=== PATIENT | male | born 1945 | race Two or more races ===

== ENCOUNTER 2017-01-08 22:45 | Inpatient (IN) ==
[2017-01-08] MEDS ORDERED: ONDANSETRON 4 MG/2 ML VIAL ONE (23:01)
[2017-01-08] MEDS ORDERED: ONDANSETRON 4 MG/2 ML VIAL IV STA (23:12)
[2017-01-08] MEDS ORDERED: PROMETHAZINE 25 MG/1 ML VIAL IM STA (23:47)
[2017-01-08] MEDS ORDERED: PANTOPRAZOLE 40 MG VIAL IV STA (23:47)
[2017-01-08] MEDS ORDERED: OCTREOTIDE 100 MCG/ML SYRINGE IV STA (23:47)
[2017-01-08] MEDS ORDERED: PANTOPRAZOLE 40 MG VIAL IV ONE (23:54)
[2017-01-08] MEDS ORDERED: PROMETHAZINE 25 MG/1 ML VIAL ONE (23:54)
[2017-01-08 23:56] LABS: Basophils # 0.1 10*3/uL (0.0-0.2); Basophils % 0.7 % (0.0-0.8); Eosinophils # 0.1 10*3/uL (0.0-0.87); Eosinophils % 0.9 % (0.00-10.9); Hematocrit 35.9 VOL% (42.0-52.0); Hemoglobin 12.9 GM/DL (14.0-18.0); Immature Granulocytes % 0.7 %; Immature Granulocytes Absolute 0.06 #; Lymphocytes # 1.7 10*3/uL (1.4-4.0); Lymphocytes % 18.8 % (21.2-54.2); Mean Corpuscular HGB Conc 35.9 GM/DL (32-36); Mean Corpuscular Hemoglobin 32 PG (27-34); Mean Corpuscular Volume 89.3 FL (87-102); Mean Platelet Volume 11.2 FL (9.6-12.0); Monocytes # 0.5 10*3/uL (0.11-0.8); Monocytes % 5.9 % (1.7-12.7); Neutrophils # 6.6 10*3/uL (1.4-7.4); Platelet Count 96 T/CUMM (130-400); Red Blood Count 4.02 MC/CUMM (3.8-5.5); Red Cell Distribution Width 13.7 % (9.3-17.3)
[2017-01-08] MEDS ORDERED: OCTREOTIDE 100 MCG/ML SYRINGE ONE (23:56)
[2017-01-09 00:08] LABS: Albumin 2.8 G/DL (3.4-5.0); Bilirubin,Total 4.2 MG/DL (0.2-1.0); Calcium 8.4 MG/DL (8.5-10.1); Total Protein 6.2 G/DL (6.4-8.3)
[2017-01-09 00:17] LABS: INR 1.2; PT Patient Result 12.7 SECS; Partial Thromboplastin Time 27.8 SECS (0-40)
[2017-01-09] MEDS ORDERED: MORPHINE 2 MG/1 ML SYRINGE IV PRN (00:40)
[2017-01-09] MEDS ORDERED: PROMETHAZINE 25 MG/1 ML VIAL IM PRN (00:40)
[2017-01-09] MEDS ORDERED: ONDANSETRON 4 MG/2 ML VIAL IV PRN (00:40)
[2017-01-09] MEDS ORDERED: PROMETHAZINE 25 MG TABLET PO PRN (00:40)
--- NOTE | 2017-01-09 00:42 | Emergency Department Note ---
Arrival - Arrival Chief Complaint: GI Bleed/Rectal ED Nursing Triage Note: Pt arrives via ems from home with complaints of vomiting blood. Pt has history of upper gi bleed in the past. At time of triage pt is actively vomiting. Reports that it started two hours ago and that he esimated he filled up half of the emesis bag. Pt states that he does have abd pain that comes and goes. Last normal Bm was earlier today. Pt states that no blood was in the stool. Denies history of alcohol use. Mode of Arrival: Stretcher Limitations: Language Barrier Source: Patient Time Seen by Provider: 01/08/17 23:47 - History of Present Illness HPI Narrative: The history on this patient is limited and of questionable accuracy due to language barrier. The patient complains of vomiting blood. This started about 2 hours ago. He denies any blood in his stool or melena. He does tell me he has had cirrhosis in the past although, contrary to the triage note, he denies any history of GI bleed to me. He has been seen by a GI specialist in the past and had an EGD. It sounds like he was told he had esophageal varices. He denies any history of alcohol use. He denies any dizziness, lightheadedness, syncope or shortness of breath at present. He denies any other medical problems and states he has not been on any medications for approximately 4 months. Allergies/Adverse Reactions: Allergies Allergy/AdvReac Type Severity Reaction Status Date / Time No Known Allergies Allergy Verified 01/08/17 23:00 Home Medications: Home Medications Medication Instructions Recorded Confirmed Type No Known Home Medications [No 01/08/17 01/08/17 History Known Home Medications] Review of System - Review of System ROS unobtainable: other (Language barrier) - Review of System Constitutional: Absent: weakness Cardiovascular: Absent: chest pain Gastrointestinal: Present: abdominal pain, nausea, vomiting, hematemesis. Absent: diarrhea, constipation, melena, hematochezia Medical,Surgical,& Family Hx - Medical History Gastrointestinal: History of: Esophageal Varices, Liver Problems (Cirrhosis, nonalcoholic) No history of: Gastrointestinal Bleed - Surgical History Abdominal Surgeries: Surgical HX of: Appendectomy - Family History Family History: noncontributory - Social History Smoking Status: Never smoker Frequency of Alcohol Use: None Type of Drug Use: None Exam Physical Examination: GENERAL: Alert. No acute distress. The patient was actively vomiting maroon colored blood on arrival. HEENT: Normocephalic and atraumatic. There is no nasal drainage. No pharyngeal erythema or exudate. NECK: Normal inspection. Supple. No lymphadenopathy or meningismus. LUNGS: No respiratory distress. Clear to auscultation bilaterally, no wheezes, rales or rhonchi. HEART: Regular rate and rhythm. ABDOMEN: Soft, nontender and nondistended with normoactive bowel sounds. BACK: Normal inspection. SKIN: Color normal. Warm and dry. EXTREMITIES: Nontender. Normal range of motion. No pedal edema. NEUROLOGICAL/PSYCHIATRIC: Alert and oriented -3 with normal mood and affect. Cranial nerves normal. No motor or sensory deficit. Vital Signs: Vital Signs Temperature 98.4 F 01/08/17 22:45 Pulse Rate 97 H 01/08/17 23:10 Respiratory Rate 16 01/08/17 23:10 Blood Pressure 190/99 01/08/17 23:10 O2 Sat by Pulse Oximetry 99 01/08/17 23:10 Course - Reevaluation(s) Reevaluation #1: The patient continued to vomit in the ER maroon colored blood. I have put down an NG tube and given him Sandostatin. We are continuing fluids and putting him on a Sandostatin infusion. He seems to have slowed down at the moment. I suspect this is esophageal varices. I have discussed the patient with Dr. Wells who will see him in the ER and admit. Time: 00:40 Results - Labs CBC & BMP: 01/08/17 23:04 01/08/17 23:04 Critical Care Time Total Critical Care Time: 45 Disposition Clinical Impression: Hematemesis, Cirrhosis Case discussed with: patient Disposition: Still a Patient Condition: Guarded Time of Disposition: 00:42
[2017-01-09] MEDS ORDERED: hydrALAZINE 20 MG/1 ML VIAL IV PRN (00:45)
--- NOTE | 2017-01-09 00:57 | Hospitalist History & Physical ---
<MarisabelEdmund barillasramonita Velásquez - Last Filed: 01/09/17 01:54> History of Present Illness History of present illness: Mr. Ochoa is a 71 year old male Home Medications Medication Instructions Recorded Confirmed Type No Known Home Medications [No 01/08/17 01/08/17 History Known Home Medications] Allergies Allergy/AdvReac Type Severity Reaction Status Date / Time No Known Allergies Allergy Verified 01/08/17 23:00 Exam - Constitutional Vitals: Period Temp Pulse Resp BP Sys/Hicks Pulse Ox Last 24 Hr 98.4 F-98.4 F 77-97 16-18 129-190/66-99 94-99 Exam: Constitutional System: Well-developed. No distress. No tremulousness. Head: Normocephalic, atraumatic. Ears, Nose and Throat System: No pain or tenderness. No epistaxis or discharge Eyes System: Pupils equal, round, and reactive. Extraocular muscles intact. Mild icterus noted. Neck: Supple, without adenopathy, No jugular venous distention. No thyromegaly, neck mass, or prior surgery apparent. Respiratory System: Chest clear to auscultation. Cardiovascular System: Heart with regular rate and rhythm. Systolic murmur noted ; greatest intensity over right upper sternal border. GI System: Abdomen soft, nontender. Hyper active bowel sounds present. Musculoskeletal System: limbs with mild pedal edema. Full distal pulses. Normal capillary refill. Neurological System: No discernable sensory deficit. No aphasia Psychiatric System: Conversation is rational Results - Labs CBC & BMP: 01/08/17 23:04 01/08/17 23:04 <Jeffy Wells - Last Filed: 01/09/17 03:27> Assessment and Plan - Time spent with patient Time spent with patient: Greater than 30 minutes (1) Hematemesis Status: Acute Assessment and plan: admit to icu Continue Sandostatin Continue IV PPI NPO IVF Consult GI Check hepatitis panel Current Visit: Yes Qualifiers: Nausea presence: with nausea Qualified Code(s): K92.0 - Hematemesis; R11.0 - Nausea (2) Cirrhosis Status: Acute Assessment and plan: unclear which type Current Visit: Yes Qualifiers: Hepatic cirrhosis type: unspecified hepatic cirrhosis (3) Hyperbilirubinemia Status: Acute Assessment and plan: Bilirubin of 4. Follow-up GI consult and right upper quadrant ultrasound Current Visit: Yes History of Present Illness Chief complaint: vomiting blood History of present illness: Mr. Ochoa is a 71 year old male that presented to the ED with complaints of abd pain and vomiting blood. The history on this patient is limited and of questionable accuracy due to language barrier. his sx's began about 2 hours ago. He denies any blood in his stool or melena. He does tell me he has had cirrhosis in the past although, contrary to the triage note, he denies any history of GI bleed to me. He has been seen by a GI specialist in the past and had an EGD. It sounds like he was told he had esophageal varices. He denies any history of alcohol use. He denies any dizziness, lightheadedness, syncope or shortness of breath at present. He denies any other medical problems and states he has not been on any medications for approximately 4 months. He was started on Sandostatin in the ED after vomiting more blood in the emesis bag. He is being admitted to the ICU for continued supportive care and repeat H/H as well as sandostatin and IV PPI. The patient was seen in [facility] and worked up for cirrhosis and esophageal varices. This is within the last 6 months. He is unsure as to the underlying cause of his cirrhosis but reports that he is not and has not been a heavy alcohol drinker. MERINO is in the differential. This is his first bleeding episode. He reports being started on Aldactone while in [place] but has not been taking it recently. He states he vomited approximately 5 times today. Each time contained approximately 300 cc of blood. At the time of my exam, the patient is pain-free. He was seen and examined in the emergency department in room 18 with Yovana Castaneda NP. Medical,Surgical,& Family Hx - Medical History Gastrointestinal: History of: Esophageal Varices, Liver Problems (Cirrhosis, nonalcoholic) No history of: Gastrointestinal Bleed - Surgical History Abdominal Surgeries: Surgical HX of: Appendectomy - Family History Additional Family History: The patient denies any family history of liver problems or other health problems in his parents or siblings. - Social History Smoking Status: Never smoker Frequency of Alcohol Use: None Type of Drug Use: None Marital Status: Lives With:: Spouse Functional capacity: independent ambulation 12 point system: reviewed and no additional remarkable complaints except as stated - Gastrointestinal Gastrointestinal: Present: as per HPI, hematemesis, nausea, vomiting Exam - Constitutional Vitals: Period Temp Pulse Resp BP Sys/Hicks Pulse Ox Last 24 Hr 98.4 F-98.4 F 92-97 16-18 172-190/79-99 98-99 Results - Labs CBC & BMP: 01/08/17 23:04 01/08/17 23:04 Lab Results: I have reviewed the past 24 hour labs Quality Measures - VTE Contraindication to Pharmacological VTE Prophylaxis: Active Bleeding
[2017-01-09] MEDS: OCTREOTIDE 1,250 MCG in SODIUM CHLORIDE 0.9% 247.5 ML IV SCH (01:18)
[2017-01-09] MEDS: SODIUM CHLORIDE 0.9% 1,000 ML IV SCH ×3 (02:05→16:55)
[2017-01-09] MEDS: PANTOPRAZOLE 40 MG VIAL IV SCH ×3 (06:11→21:33)
[2017-01-09 06:16] LABS: Basophils % 0.1 % (0.0-0.8); Eosinophils % 0.3 % (0.00-10.9); Hematocrit 30.8 VOL% (42.0-52.0); Hematocrit 30.9 VOL% (42.0-52.0); Hemoglobin 11.1 GM/DL (14.0-18.0); Immature Granulocytes % 0.4 %; Immature Granulocytes Absolute 0.03 #; Lymphocytes # 1.3 10*3/uL (1.4-4.0); Lymphocytes % 18.5 % (21.2-54.2); Mean Corpuscular HGB Conc 35.6 GM/DL (32-36); Mean Corpuscular Hemoglobin 32 PG (27-34); Mean Corpuscular Volume 90.9 FL (87-102); Mean Platelet Volume 10.9 FL (9.6-12.0); Monocytes # 0.4 10*3/uL (0.11-0.8); Monocytes % 5.6 % (1.7-12.7); Neutrophils # 5.1 10*3/uL (1.4-7.4); Neutrophils % 75.1 % (38.7-73.9); White Blood Count 6.8 T/CUMM (4-12)
[2017-01-09 06:19] LABS: Platelet Count 70 T/CUMM (130-400)
[2017-01-09 06:22] LABS: Platelet Estimate Decreased
[2017-01-09 06:33] LABS: Albumin 2.4 G/DL (3.4-5.0); Bilirubin,Total 4.6 MG/DL (0.2-1.0); Calcium 7.8 MG/DL (8.5-10.1); Osmolality,Calculated 293.7 MOS/KG (273-304); Potassium 5.3 MMOL/L (3.5-5.1); Total Protein 5.2 G/DL (6.4-8.3)
[2017-01-09 07:42] LABS: Hepatitis A Ab IgM Quant 0.14 Index; Hepatitis A Ab IgM Result Negative (Negative); Hepatitis B Core IgM Quant < 0.05 Index; Hepatitis B Core IgM Result Negative (Negative); Hepatitis B Surface Ag Quant 0.24 Index; Hepatitis B Surface Ag Result Negative (Negative); Hepatitis C Virus Ab Quant 0.05 Index; Hepatitis C Virus Ab Result Negative (Negative)
--- NOTE | 2017-01-09 10:02 | Ultrasound Report ---
US right upper quadrant Indication: Elevated bilirubin. ULTRASOUND ABDOMEN, limited Comparison: None Findings: Liver: No focal lesion. Smooth contour and normal size. Heterogeneous increased echotexture throughout. Gallbladder: 5 mm soft tissue polyp without shadowing the gallbladder fundus. Otherwise negative gallbladder. Common bile duct: 3 mm Pancreas: Visualized segments are unremarkable. Tail obscured by bowel gas. Right kidney: 13.1 cm length. No mass, cyst, calcification or obstruction Impression: 1. Gallbladder polyp. Otherwise negative gallbladder. 2. Diffuse increased and heterogeneous echotexture of the liver noted, evidence of either cirrhosis or fatty infiltration. Otherwise negative liver. PROCEDURE INTERPRETED AT [facility] DEPARTMENT OF RADIOLOGY Final Report Signed by: Gavin Jerez M.D.
--- NOTE | 2017-01-09 12:17 | Gastrointestinal Consult Note ---
Assessment and Plan (1) Hematemesis Status: Acute Assessment and plan: The patient has an upper GI bleed by report with 3 episodes of hematemesis his recent truck stop and 2 more episodes of hematemesis here at the emergency room each with about 40 cc of blood which previously was maroon. Rectal exam today shows melena consistent with the patient's history of upper GI bleeding. The patient denies previous episodes but I am sure that if he underwent upper endoscopy for this was likely due to a history of prior bleeding in [place]. He was diagnosed as having varices at that time. It is unclear whether these were banded or not or whether this present episode associated with a variceal bleed versus bleeding from some other source such as food poisoning or ulcer disease. He recently had some aspirin and whether this is playing a role is unclear. He does not feel any pain he did not have any dysphagia. I am going to let him rest in the ICU tomorrow and continue his infusion of octreotide, will plan on doing upper endoscopy in the GI suite with potential banding on Wednesday. His hematocrit has changed although it looks like he is only lost approximately 1-2 units of blood. He can potentially have some full liquids to drink over the weekend. I would attempt to remove his NG tube is soon as practical as this may be irritating varices that are present. Current Visit: Yes Qualifiers: Nausea presence: with nausea Qualified Code(s): K92.0 - Hematemesis; R11.0 - Nausea (2) Acute posthemorrhagic anemia Status: Acute Assessment and plan: Hematocrit is about 30% at this time we will watch for continued losses over the weekend. Plan on EGD to occur on 01/11/17. We will get his daughter to relay the risks to the patient to include bleeding, infection, perforation, cardiac and pulmonary compromise. Current Visit: Yes (3) History of esophageal varices Status: Acute Current Visit: Yes (4) Cirrhosis Status: Acute Assessment and plan: At this time I really do not have a clue as to what is producing the cirrhosis. This may be nonalcoholic fatty liver disease versus hemochromatosis versus alpha-1 antitrypsin deficiency or perhaps even autoimmune hepatitis. Laboratories are pending at this time. I am not sure if he ever had a liver biopsy but that is simply could be pursued in the future if not. Will likely need variceal prophylaxis with beta blockers upon discharge depending on the findings of upper endoscopy. We will pursue banding for a hemostasis if the patient has evidence of significant size varices and/or red ru signs. Observe in the CCU setting due to potential risks for additional bleeding. 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 The patient speaks Indonesian and we have no bilingual interpreter available but in questioning the patient he states that he does not have any abdominal pain today nor did he have much yesterday but had taken aspirin 2 2 days ago in conjunction with some throat pain. He does not smoke and does not drink at all in keeping with his moravian tenets. He does not feel dizzy or weak, he has never had episodes like this in the past. He does not typically take NSAIDs. Over the evening time his hematocrit has dropped some but not an extraordinary amount. He does have thrombocytopenia with a platelet count that is dropped from 96-70. His hematocrit is dropped from 35.9-->30.8%. The patient's hepatitis A, B, and C are all negative however his bilirubin is noted to be elevated at 4.6, we do not have a direct fraction, alkaline phosphatase surprisingly is normal at 95. Total protein and albumin are low at 5.2 and 2.4. Ultrasound shows an increased echotexture consistent with steatosis versus cirrhosis as well as a soft tissue polyp shadowing in the gallbladder but a normal common bile duct and no ductal dilatation. This patient previously seen a GI physician in [facility] who diagnosed him as having esophageal varices by report and had diagnosed him as having cirrhosis. With no alcohol history and negative viral indicators it is unclear what type he might have but we will check him for alpha -1 antitrypsin deficiency, autoimmune hepatitis and hemochromatosis. Given that his hematocrit is stable and he is having no pain and no other issues we will likely delay his endoscopy until Wednesday morning. Home Medications Medication Instructions Recorded Confirmed Type No Known Home Medications [No 01/08/17 01/08/17 History Known Home Medications] Allergies Allergy/AdvReac Type Severity Reaction Status Date / Time No Known Allergies Allergy Verified 01/08/17 23:00 Medical,Surgical,& Family Hx - Medical History Cardio: History of: Hypertension Endocrine: History of: Diabetes Mellitus (IDDM) Gastrointestinal: History of: Esophageal Varices, Liver Problems (Cirrhosis, nonalcoholic) No history of: Gastrointestinal Bleed - Surgical History Abdominal Surgeries: Surgical HX of: Appendectomy - Social History Smoking Status: Never smoker Frequency of Alcohol Use: None Type of Drug Use: None ROS unobtainable: other Review of systems: Unable to assess due to language barrier Exam - Constitutional Vitals: Period Temp Pulse Resp BP Sys/Hicks Pulse Ox Last 24 Hr 97.8 F-98.4 F 66-97 15-24 94-190/51-99 94-100 General appearance: no acute distress - Head Head exam: Present: normocephalic - Eye Eye exam: Present: EOMI. Absent: scleral icterus - ENT ENT exam: Present: other (NG tube in place) - Respiratory Respiratory exam: Present: clear to auscultation bilaterally. Absent: rhonchi, stridor, wheezes - Cardiovascular Cardiovascular exam: Present: regular rate and rhythm - GI/Abdominal GI/Abdominal exam: Present: normal bowel sounds, soft, other (Rectal exam today shows good tone no external fissures or fistulas stool was checked black and grossly guaiac positive consistent with melena). Absent: distended, firm, guarding, tenderness, rebound - Extremities Exam Extremities exam: Present: edema (Trace) - Neurological Exam Neurological exam: Present: alert, oriented X3 - Psychiatric Psychiatric exam: Present: normal affect, normal mood - Skin Skin exam: Present: warm Results - Labs CBC & BMP: 01/09/17 05:31 01/09/17 05:31 Quality Measures - VTE Contraindication to Pharmacological VTE Prophylaxis: Active Bleeding
[2017-01-09 12:42] LABS: Hematocrit 29.2 VOL% (42.0-52.0); Hemoglobin 10.5 GM/DL (14.0-18.0)
[2017-01-09 13:12] LABS: % Iron Saturation 92.9 % (18-50)
[2017-01-09 21:24] LABS: Hemoglobin 10.1 GM/DL (14.0-18.0)
[2017-01-10] MEDS: SODIUM CHLORIDE 0.9% 1,000 ML IV SCH ×3 (01:12→17:06)
[2017-01-10] MEDS: OCTREOTIDE 1,250 MCG in SODIUM CHLORIDE 0.9% 247.5 ML IV SCH (01:13)
[2017-01-10 01:39] LABS: Basophils % 0.5 % (0.0-0.8); Eosinophils # 0.2 10*3/uL (0.0-0.87); Eosinophils % 2.6 % (0.00-10.9); Hematocrit 28.3 VOL% (42.0-52.0); Hemoglobin 9.8 GM/DL (14.0-18.0); Immature Granulocytes % 0.5 %; Immature Granulocytes Absolute 0.03 #; Lymphocytes # 1.8 10*3/uL (1.4-4.0); Mean Corpuscular HGB Conc 34.6 GM/DL (32-36); Mean Corpuscular Hemoglobin 32 PG (27-34); Mean Corpuscular Volume 92.2 FL (87-102); Mean Platelet Volume 10.8 FL (9.6-12.0); Monocytes # 0.3 10*3/uL (0.11-0.8); Monocytes % 5.5 % (1.7-12.7); Neutrophils # 3.4 10*3/uL (1.4-7.4); Neutrophils % 59.9 % (38.7-73.9); Platelet Count 60 T/CUMM (130-400); Red Blood Count 3.07 MC/CUMM (3.8-5.5); Red Cell Distribution Width 14.1 % (9.3-17.3); White Blood Count 5.7 T/CUMM (4-12)
[2017-01-10 02:06] LABS: Albumin 2.2 G/DL (3.4-5.0); Bilirubin,Direct 0.5 MG/DL (0.0-0.20); Bilirubin,Indirect 4.1 MG/DL (0.0-1.0); Bilirubin,Total 4.6 MG/DL (0.2-1.0); Total Protein 4.9 G/DL (6.4-8.3)
[2017-01-10 02:25] LABS: Eosinophils 5 % (0-10); Lymphocytes 27 % (20-55); Myelocytes 1 %; Segmented Neutrophils 66 % (50-85); Total Cells Counted 100
[2017-01-10 02:26] LABS: Anisocytosis 1+; Platelet Estimate Decreased
[2017-01-10] MEDS: PANTOPRAZOLE 40 MG VIAL IV SCH ×2 (09:01→20:25)
--- NOTE | 2017-01-10 11:32 | Gastrointestinal Progress Note ---
Assessment and Plan (1) Hematemesis Status: Acute Assessment and plan: The patient has an upper GI bleed by report with 3 episodes of hematemesis his recent truck stop and 2 more episodes of hematemesis here at the emergency room each with about 40 cc of blood which previously was maroon. Rectal exam today shows melena consistent with the patient's history of upper GI bleeding. The patient denies previous episodes but I am sure that if he underwent upper endoscopy for this was likely due to a history of prior bleeding in [place]. He was diagnosed as having varices at that time. It is unclear whether these were banded or not or whether this present episode associated with a variceal bleed versus bleeding from some other source such as food poisoning or ulcer disease. He recently had some aspirin and whether this is playing a role is unclear. He does not feel any pain he did not have any dysphagia. I am going to let him rest in the ICU tomorrow and continue his infusion of octreotide, will plan on doing upper endoscopy in the GI suite with potential banding on Wednesday. His hematocrit has changed although it looks like he is only lost approximately 1-2 units of blood. He can potentially have some full liquids to drink over the weekend. I would attempt to remove his NG tube is soon as practical as this may be irritating varices that are present. 01/10/17--No further hematemesis, no other complaints, tolerating his clear liquids well in the ICU. He is currently on the octreotide drip and will plan on performing upper endoscopy tomorrow. The octreotide likely can be discontinued at that point. His hematocrit is slowly drifted from 35% all the way down to 28% at this time. He does not require transfusion yet. His son-in- law is present in the room and is acting as cargo checker. His home is apparently in [place] but he sees his international first officer routinely in [place]. Current Visit: Yes Qualifiers: Nausea presence: with nausea Qualified Code(s): K92.0 - Hematemesis; R11.0 - Nausea (2) Acute posthemorrhagic anemia Status: Acute Assessment and plan: Hematocrit is about 30% at this time we will watch for continued losses over the weekend. Plan on EGD to occur on 01/11/17. We will get his daughter to relay the risks to the patient to include bleeding, infection, perforation, cardiac and pulmonary compromise. 01/10/17--upper endoscopy to occur tomorrow, with potential banding of varices. Continue observation of hematocrit and octreotide for the present time. Current Visit: Yes (3) History of esophageal varices Status: Acute Current Visit: Yes (4) Cirrhosis Status: Acute Assessment and plan: At this time I really do not have a clue as to what is producing the cirrhosis. This may be nonalcoholic fatty liver disease versus hemochromatosis versus alpha-1 antitrypsin deficiency or perhaps even autoimmune hepatitis. Laboratories are pending at this time. I am not sure if he ever had a liver biopsy but that is simply could be pursued in the future if not. Will likely need variceal prophylaxis with beta blockers upon discharge depending on the findings of upper endoscopy. We will pursue banding for a hemostasis if the patient has evidence of significant size varices and/or red ru signs. Observe in the CCU setting due to potential risks for additional bleeding. 01/10/17--Laboratories pending as noted above. Presumably the patient will be ready for discharge either right after the endoscopy or perhaps a day later if he needs to be observed post banding. If banding is required the patient will need a full liquid diet for full week afterwards and he will need antibiotic prophylaxis at the time of banding (a single dose of Ancef should suffice). Current Visit: Yes Qualifiers: Hepatic cirrhosis type: unspecified hepatic cirrhosis Gastroenterology - PN: Subj Interval history: Tolerating clear liquids well, patient is awaiting his endoscopy tomorrow. Hematocrit showed a slow drift to 28% from 35% this morning. His home is actually in [facility], his international first officer is in [place]. Exam (Progress Note) - Constitutional Vitals: Period Temp Pulse Resp BP Sys/Hicks Pulse Ox Last 24 Hr 97.1 F-98.9 F 65-87 12-23 113-158/43-75 95-100 General appearance: no acute distress - Head Head exam: Present: normal inspection, normocephalic - Eye Eye exam: Present: EOMI Pupils: Present: LUIS - Respiratory Respiratory exam: Present: clear to auscultation bilaterally. Absent: rales, rhonchi, stridor - Cardiovascular Cardiovascular exam: Present: regular rate and rhythm - GI/Abdominal GI/Abdominal exam: Present: normal bowel sounds, soft. Absent: distended, tenderness, rebound - Neurological Exam Neurological exam: Present: alert, oriented X3, CN II-XII intact - Psychiatric Psychiatric exam: Present: normal affect, normal mood - Skin Skin exam: Present: warm Results - Labs CBC & BMP: 01/10/17 01:15 01/09/17 05:31
[2017-01-10 12:33] LABS: Hematocrit 31.3 VOL% (42.0-52.0); Hemoglobin 11.1 GM/DL (14.0-18.0)
--- NOTE | 2017-01-10 17:35 | Hospitalist Progress Note ---
Hospitalist: Subjective Interval history: 71-year-old male with history of cirrhosis of liver admitted admitted with upper GI bleed secondary to possible varices bleed. He is comfortable and has no further bleeding. Exam - Constitutional Vitals: Period Temp Pulse Resp BP Sys/Hicks Pulse Ox Last 24 Hr 97.6 F-98.9 F 65-87 12- 113-178/43-96 95-99 Exam: General: No Acute Distress HEENT: Normocephalic, atraumatic, Extra ocular movements intact Neck: Supple, No JVD Chest: Clear to auscultation B/L CV: S1 + S2 audible without murmur, gallop or rub Abd: soft, NT, Non-distended, BS + Ext: No edema Skin: No purpura, bruising or rash Rheumatologic: No Joint deformities Neurologic: Strength 5/5 all extremities, no gross sensory deficits Results - Labs CBC & BMP: 01/10/17 12:25 01/09/17 05:31 - Impressions Assessment and Plan (1) Upper GI bleed with hematemesis Status: Acute Assessment and plan: This is stable he has no further bleed, he is going for an EGD in the morning Current Visit: Yes (2) Anemia of acute GI blood loss Status: Acute Assessment and plan: Hematocrit is stable. Current Visit: Yes (3) History of esophageal varices Status: Acute Current Visit: Yes (4) Cirrhosis Status: Acute Current Visit: Yes Quality Measures - VTE Contraindication to Pharmacological VTE Prophylaxis: Active Bleeding
[2017-01-11] MEDS: SODIUM CHLORIDE 0.9% 1,000 ML IV SCH ×3 (01:22→16:45)
[2017-01-11] MEDS: OCTREOTIDE 1,250 MCG in SODIUM CHLORIDE 0.9% 247.5 ML IV SCH (01:23)
[2017-01-11 01:36] LABS: Hematocrit 28.4 VOL% (42.0-52.0); Hemoglobin 10.2 GM/DL (14.0-18.0)
[2017-01-11 06:23] LABS: Basophils % 0.3 % (0.0-0.8); Eosinophils # 0.1 10*3/uL (0.0-0.87); Eosinophils % 1.6 % (0.00-10.9); Hematocrit 27.9 VOL% (42.0-52.0); Immature Granulocytes % 0.6 %; Immature Granulocytes Absolute 0.04 #; Lymphocytes # 1.1 10*3/uL (1.4-4.0); Lymphocytes % 16.4 % (21.2-54.2); Mean Corpuscular HGB Conc 35.8 GM/DL (32-36); Mean Corpuscular Hemoglobin 33 PG (27-34); Mean Corpuscular Volume 91.8 FL (87-102); Mean Platelet Volume 11.3 FL (9.6-12.0); Monocytes # 0.4 10*3/uL (0.11-0.8); Monocytes % 5.6 % (1.7-12.7); Neutrophils # 5.2 10*3/uL (1.4-7.4); Neutrophils % 75.5 % (38.7-73.9); Platelet Count 60 T/CUMM (130-400); Red Blood Count 3.04 MC/CUMM (3.8-5.5); Red Cell Distribution Width 13.6 % (9.3-17.3); White Blood Count 6.8 T/CUMM (4-12)
[2017-01-11 06:48] LABS: Giant Platelets Few; Hypochromasia 1+; Microcytosis Slight; Platelet Estimate Decreased
--- NOTE | 2017-01-11 07:29 | EKG Report ---
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
[2017-01-11 07:40] LABS: Calcium 7.4 MG/DL (8.5-10.1); Potassium 3.8 MMOL/L (3.5-5.1)
[2017-01-11] MEDS: PANTOPRAZOLE 40 MG VIAL IV SCH (14:03)
[2017-01-11] MEDS ORDERED: LIDOCAINE 2% 5 ML VIAL ONE (14:34)
[2017-01-11] MEDS ORDERED: PROPOFOL 200 MG/20 ML VIAL IV ONE (14:34)
--- NOTE | 2017-01-11 14:54 | Operative Note ---
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 The prior H&P was reviewed and interrim changes are as noted: No change from GI consultation on 01/09/17 ENDOSCOPIST: Derek King MD ENDOSCOPE: Olympus Video 100 System upper endoscope ASA CLASS: 4 EXAM: CV: regular rate and rhythm respiratory: Clear without wheezes abdominal: active bowel sounds MEDICATION: Per nursing anesthesia protocol, see their notes PROCEDURE: After discussion of the potential risks and benefits of upper endoscopy, the informed consent was obtained. The patient was then placed in the left lateral decubitus position where sedation was achieved as noted above. Esophageal intubation was performed without difficulty, and the endoscope was advanced through the esophagus, stomach and duodenum. A slow withdrawal was then performed with retroflexion in the stomach for careful inspection of the incisura angularis, fundus and cardia. The scope was then returned to a neutral position and withdrawn through the esophagus. The patient tolerated the procedure well and without complication. BIOPSIES: Distal esophagus, gastric antrum/ulcer margin PHOTOGRAPHS : Obtained FINDINGS: Hypopharynx and Larynx: Normal Esohagoscopy Upper and middle thirds: Grade II esophageal varices, 3 columns Lower third grade II esophageal varices, 3 columns, no gross evidence of red ru signs Esophogastric junctions: There appear to be a small 1 cm tongue of possible Dunn's here which was gingerly biopsied due to the proximity of the varices Gastroscopy: Cardia/Fundus: Moderate portal hypertensive gastropathy, weeping some blood Body: Moderate portal hypertensive gastropathy, weeping some blood Antrum and pylorus there was a 1 cm ulcer noted here with a few other deep erosions thought to be the source the patient's bleeding, biopsies obtained to look for Helicobacter pylori Duodenoscopy: Bulb normal Second and third portions: Normal IMPRESSION: This patient has 3 columns of grade II varices, a possible tongue of Dunn's which was biopsied, moderate portal hypertensive gastropathy weeping some blood, and gastric ulcers/erosions. RECOMMENDATIONS: Follow up for biopsy results in 1-2 weeks by phone [phone] Continue anti-gastroesophageal reflux measures (avoid carbonated and acidic beverages, avoid eating within 2 hours of bedtime, avoid tight fitting clothing , and elevate the front bed posts 6 inches prior to sleeping. I would observe this patient for the next day before discharging him to make sure that he remains stable as far as his hematocrit goes. We did not do any banding so if his hematocrit is doing better tomorrow morning after feeding a solid diet he could certainly be discharged to follow-up with his pot maker in [place]. I do suggest that he undergo repeat upper endoscopy in 8 weeks to confirm healing. We will discontinue the octreotide and start the patient on propranolol 20 mg p.o. 3 times daily Derek King MD COPY TO: Marzena Salomon MD Anesthesia: MAC Surgeon / Physician: Derek King Estimated blood loss: minimal Specimens: other (Gastric antrum/body, question of Dunn's of the GE junction) Condition: stable Disposition: post procedure unit (G.I. Suite) Results - Labs CBC & BMP: 01/11/17 05:31 01/11/17 05:31 Discharge Plan - Discharge Medications No Action No Known Home Medications [No Known Home Medications] - Follow Up or Referral - Forms/Instructions
--- NOTE | 2017-01-11 15:02 | Gastrointestinal Progress Note ---
Assessment and Plan (1) Hematemesis Status: Acute Assessment and plan: The patient has an upper GI bleed by report with 3 episodes of hematemesis his recent truck stop and 2 more episodes of hematemesis here at the emergency room each with about 40 cc of blood which previously was maroon. Rectal exam today shows melena consistent with the patient's history of upper GI bleeding. The patient denies previous episodes but I am sure that if he underwent upper endoscopy for this was likely due to a history of prior bleeding in [place]. He was diagnosed as having varices at that time. It is unclear whether these were banded or not or whether this present episode associated with a variceal bleed versus bleeding from some other source such as food poisoning or ulcer disease. He recently had some aspirin and whether this is playing a role is unclear. He does not feel any pain he did not have any dysphagia. I am going to let him rest in the ICU tomorrow and continue his infusion of octreotide, will plan on doing upper endoscopy in the GI suite with potential banding on Wednesday. His hematocrit has changed although it looks like he is only lost approximately 1-2 units of blood. He can potentially have some full liquids to drink over the weekend. I would attempt to remove his NG tube is soon as practical as this may be irritating varices that are present. 01/10/17--No further hematemesis, no other complaints, tolerating his clear liquids well in the ICU. He is currently on the octreotide drip and will plan on performing upper endoscopy tomorrow. The octreotide likely can be discontinued at that point. His hematocrit is slowly drifted from 35% all the way down to 28% at this time. He does not require transfusion yet. His son-in- law is present in the room and is acting as dope maintenance worker. His home is apparently in [place] but he sees his fabricator special items routinely in [place]. 01/11/17--Upper endoscopy report: This patient has 3 columns of grade II varices , a possible tongue of Dunn's which was biopsied, moderate portal hypertensive gastropathy weeping some blood, and gastric ulcers/erosions. The grade 2 varices did not appear to be the source of the bleeding, we can stop the octreotide and start the patient on oral propranolol. His hematocrit has drifted down to 28% but is stable at this time. The gastric ulcers may be secondary to Helicobacter pylori or surreptitious use of NSAID. 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 Over this a weeks he should be left on Protonix 40 mg twice daily in addition to propranolol 20 mg 3 times daily to help control pressure in the varices. We can cut this back if his heart rate drops below 60. Biopsies were taken of a possible tongue of Dunn' s in the esophagus as well. Current Visit: Yes Qualifiers: Nausea presence: with nausea Qualified Code(s): K92.0 - Hematemesis; R11.0 - Nausea (2) Acute posthemorrhagic anemia Status: Acute Assessment and plan: Hematocrit is about 30% at this time we will watch for continued losses over the weekend. Plan on EGD to occur on 01/11/17. We will get his daughter to relay the risks to the patient to include bleeding, infection, perforation, cardiac and pulmonary compromise. 01/10/17--upper endoscopy to occur tomorrow, with potential banding of varices. Continue observation of hematocrit and octreotide for the present time. 01/11/17--Watch hematocrit over time, we can advance his diet there were no bands to have to worry about. We need to leave him on a low-sodium diet. Discontinue octreotide and he is safe to go up to the floor on his propranolol. Ultimately it would be reasonable to watch this patient in the unit 1 more day. He can be discharged home tomorrow if he is stable. Current Visit: Yes (3) History of esophageal varices Status: Acute Current Visit: Yes (4) Cirrhosis Status: Acute Assessment and plan: At this time I really do not have a clue as to what is producing the cirrhosis. This may be nonalcoholic fatty liver disease versus hemochromatosis versus alpha-1 antitrypsin deficiency or perhaps even autoimmune hepatitis. Laboratories are pending at this time. I am not sure if he ever had a liver biopsy but that is simply could be pursued in the future if not. Will likely need variceal prophylaxis with beta blockers upon discharge depending on the findings of upper endoscopy. We will pursue banding for a hemostasis if the patient has evidence of significant size varices and/or red ru signs. Observe in the CCU setting due to potential risks for additional bleeding. 01/10/17--Laboratories pending as noted above. Presumably the patient will be ready for discharge either right after the endoscopy or perhaps a day later if he needs to be observed post banding. If banding is required the patient will need a full liquid diet for full week afterwards and he will need antibiotic prophylaxis at the time of banding (a single dose of Ancef should suffice). 01/11/17--We do not know what the cause for the patient's cirrhosis is, however the patient's iron is 170 with a TIBC of 183 and iron saturation of 92.9%, NISH was negative and the alpha-1 antitrypsin level is pending. This is likely hemochromatosis. We will check a ferritin level as well, liver biopsy with a dry iron weight should confirm the diagnosis. We will leave it to his primary fabricator special items to decide if he would benefit from phlebotomy. Current Visit: Yes Qualifiers: Hepatic cirrhosis type: unspecified hepatic cirrhosis Gastroenterology - PN: Subj Interval history: Patient is doing well, he is very hungry. Exam (Progress Note) - Constitutional Vitals: Period Temp Pulse Resp BP Sys/Hicks Pulse Ox Last 24 Hr 97.9 F-100.6 F 67-92 12-25 121-177/45-96 93-99 General appearance: mild distress - Head Head exam: Present: normocephalic - Eye Eye exam: Present: EOMI. Absent: scleral icterus - Cardiovascular Cardiovascular exam: Present: regular rate and rhythm - GI/Abdominal GI/Abdominal exam: Present: normal bowel sounds, soft. Absent: ascites, distended, tenderness, rebound - Neurological Exam Neurological exam: Present: alert, oriented X3 - Psychiatric Psychiatric exam: Present: normal affect, normal mood - Skin Skin exam: Present: warm Results - Labs CBC & BMP: 01/11/17 05:31 01/11/17 05:31
--- NOTE | 2017-01-11 16:04 | Hospitalist Progress Note ---
Hospitalist: Subjective Interval history: 71-year-old male with history of cirrhosis of liver admitted admitted with upper GI bleed secondary to possible varices bleed. He is comfortable and has no further bleeding. He is status post EGD for evaluation of this upper GI bleed Exam - Constitutional Vitals: Period Temp Pulse Resp BP Sys/Hicks Pulse Ox Last 24 Hr 97.9 F-100.6 F 67-92 12-25 121-177/45-96 93-99 Exam: General: No Acute Distress HEENT: Normocephalic, atraumatic, Extra ocular movements intact Neck: Supple, No JVD Chest: Clear to auscultation B/L CV: S1 + S2 audible without murmur, gallop or rub Abd: soft, NT, Non-distended, BS + Ext: No edema Skin: No purpura, bruising or rash Rheumatologic: No Joint deformities Neurologic: Strength 5/5 all extremities, no gross sensory deficits Results - Labs CBC & BMP: 01/11/17 05:31 01/11/17 05:31 - Impressions Assessment and Plan (1) Upper GI bleed with hematemesis Status: Acute Assessment and plan: This is stable he has no further bleed. He is now off of Sandostatin drip. The patient went for an EGD today. Report: This patient has 3 columns of grade II varices, a possible tongue of Dunn's which was biopsied, moderate portal hypertensive gastropathy weeping some blood , and gastric ulcers/erosions. The grade 2 varices did not appear to be the source of the bleeding. The gastric ulcers may be secondary to Helicobacter pylori or surreptitious use of NSAID. Current Visit: Yes (2) Anemia of acute GI blood loss Status: Acute Assessment and plan: Hematocrit is stable. Current Visit: Yes (3) History of esophageal varices Status: Acute Current Visit: Yes (4) Cirrhosis Status: Acute Current Visit: Yes Discharge plan: in a.m. if remains stable Quality Measures - VTE Contraindication to Pharmacological VTE Prophylaxis: Active Bleeding
[2017-01-11] MEDS: PROPRANOLOL 20 MG TABLET PO SCH ×2 (19:01→20:19)
[2017-01-11] MEDS: PANTOPRAZOLE 40 MG TABLET PO SCH (20:19)
[2017-01-12] MEDS: SODIUM CHLORIDE 0.9% 1,000 ML IV SCH (00:41)
--- NOTE | 2017-01-12 06:44 | Gastrointestinal Progress Note ---
Assessment and Plan (1) Hematemesis Status: Acute Assessment and plan: The patient has an upper GI bleed by report with 3 episodes of hematemesis his recent truck stop and 2 more episodes of hematemesis here at the emergency room each with about 40 cc of blood which previously was maroon. Rectal exam today shows melena consistent with the patient's history of upper GI bleeding. The patient denies previous episodes but I am sure that if he underwent upper endoscopy for this was likely due to a history of prior bleeding in [place]. He was diagnosed as having varices at that time. It is unclear whether these were banded or not or whether this present episode associated with a variceal bleed versus bleeding from some other source such as food poisoning or ulcer disease. He recently had some aspirin and whether this is playing a role is unclear. He does not feel any pain he did not have any dysphagia. I am going to let him rest in the ICU tomorrow and continue his infusion of octreotide, will plan on doing upper endoscopy in the GI suite with potential banding on Wednesday. His hematocrit has changed although it looks like he is only lost approximately 1-2 units of blood. He can potentially have some full liquids to drink over the weekend. I would attempt to remove his NG tube is soon as practical as this may be irritating varices that are present. 01/10/17--No further hematemesis, no other complaints, tolerating his clear liquids well in the ICU. He is currently on the octreotide drip and will plan on performing upper endoscopy tomorrow. The octreotide likely can be discontinued at that point. His hematocrit is slowly drifted from 35% all the way down to 28% at this time. He does not require transfusion yet. His son-in- law is present in the room and is acting as sign language interpreter. His home is apparently in [place] but he sees his gate clerk routinely in [place]. 01/11/17--Upper endoscopy report: This patient has 3 columns of grade II varices , a possible tongue of Dunn's which was biopsied, moderate portal hypertensive gastropathy weeping some blood, and gastric ulcers/erosions. The grade 2 varices did not appear to be the source of the bleeding, we can stop the octreotide and start the patient on oral propranolol. His hematocrit has drifted down to 28% but is stable at this time. The gastric ulcers may be secondary to Helicobacter pylori or surreptitious use of NSAID. 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 Over this a weeks he should be left on Protonix 40 mg twice daily in addition to propranolol 20 mg 3 times daily to help control pressure in the varices. We can cut this back if his heart rate drops below 60. Biopsies were taken of a possible tongue of Dunn' s in the esophagus as well. 01/12/17--upper GI bleeding likely due to gastric ulcers and erosions, the patient does have grade 2 varices 3 columns. He needs to be on his propranolol 20 mg 3 times daily, he seems to be tolerating this well this will help with future risk of bleeding. Note that his iron saturation was very high (92%), despite this his ferritin came back 147 and so if he has not been getting phlebotomy to decrease his iron load this may not be hemochromatosis as originally thought. Liver biopsy would be helpful in distinguishing. He is safe to go home today in my opinion, he needs to follow-up with his primary gate clerk in [place] in 2 months for recheck EGD. Hematocrit from today has not returned yet. He is on a low-sodium diet and can continue this as he was not banded. Current Visit: Yes Qualifiers: Nausea presence: with nausea Qualified Code(s): K92.0 - Hematemesis; R11.0 - Nausea (2) Acute posthemorrhagic anemia Status: Acute Assessment and plan: Hematocrit is about 30% at this time we will watch for continued losses over the weekend. Plan on EGD to occur on 01/11/17. We will get his daughter to relay the risks to the patient to include bleeding, infection, perforation, cardiac and pulmonary compromise. 01/10/17--upper endoscopy to occur tomorrow, with potential banding of varices. Continue observation of hematocrit and octreotide for the present time. 01/11/17--Watch hematocrit over time, we can advance his diet there were no bands to have to worry about. We need to leave him on a low-sodium diet. Discontinue octreotide and he is safe to go up to the floor on his propranolol. Ultimately it would be reasonable to watch this patient in the unit 1 more day. He can be discharged home tomorrow if he is stable. 01/12/17--no laboratories are back yet. Heart rate is around 60 sometimes into the mid 50s but the patient is not up and active at all. If he gets dizzy he should discontinue the propranolol or cut to a half pill per day Current Visit: Yes (3) History of esophageal varices Status: Acute Current Visit: Yes (4) Cirrhosis Status: Acute Assessment and plan: At this time I really do not have a clue as to what is producing the cirrhosis. This may be nonalcoholic fatty liver disease versus hemochromatosis versus alpha-1 antitrypsin deficiency or perhaps even autoimmune hepatitis. Laboratories are pending at this time. I am not sure if he ever had a liver biopsy but that is simply could be pursued in the future if not. Will likely need variceal prophylaxis with beta blockers upon discharge depending on the findings of upper endoscopy. We will pursue banding for a hemostasis if the patient has evidence of significant size varices and/or red ru signs. Observe in the CCU setting due to potential risks for additional bleeding. 01/10/17--Laboratories pending as noted above. Presumably the patient will be ready for discharge either right after the endoscopy or perhaps a day later if he needs to be observed post banding. If banding is required the patient will need a full liquid diet for full week afterwards and he will need antibiotic prophylaxis at the time of banding (a single dose of Ancef should suffice). 01/11/17--We do not know what the cause for the patient's cirrhosis is, however the patient's iron is 170 with a TIBC of 183 and iron saturation of 92.9%, NISH was negative and the alpha-1 antitrypsin level is pending. This is likely hemochromatosis. We will check a ferritin level as well, liver biopsy with a dry iron weight should confirm the diagnosis. We will leave it to his primary gate clerk to decide if he would benefit from phlebotomy. 01/12/17--mixed results on the iron studies including a relatively normal ferritin but a high iron saturation 92% liver biopsy with dry iron weight would help distinguish these unusual results. We will have the patient follow-up with his gate clerk in [place]. The patient claims never to have been a drinker this still might be Non-Alcoholic Fatty Liver Disease (NAFLD) versus hemochromatosis with chronic blood loss. Current Visit: Yes Qualifiers: Hepatic cirrhosis type: unspecified hepatic cirrhosis Gastroenterology - PN: Subj Interval history: No new complaints, patient did well. Exam (Progress Note) - Constitutional Vitals: Period Temp Pulse Resp BP Sys/Hicks Pulse Ox Last 24 Hr 97.4 F-100.6 F 53-81 12-25 121-169/51-98 94-100 General appearance: no acute distress - Head Head exam: Present: normocephalic - Eye Eye exam: Present: EOMI - Respiratory Respiratory exam: Present: clear to auscultation bilaterally. Absent: rhonchi, stridor, wheezes - Cardiovascular Cardiovascular exam: Present: regular rate and rhythm - GI/Abdominal GI/Abdominal exam: Present: normal bowel sounds, soft. Absent: distended, tenderness, rebound - Neurological Exam Neurological exam: Present: alert, oriented X3. Absent: CN II-XII intact - Psychiatric Psychiatric exam: Present: normal affect, normal mood - Skin Skin exam: Present: warm Results - Labs CBC & BMP: 01/11/17 05:31 01/11/17 05:31
--- NOTE | 2017-01-12 08:28 | Discharge Summary ---
Hospital Course - Hospital Course Hospital Course: Mr Suarez presented with hematemesis. He stayed and had EGD yesterday which showed gastric ulcers, gastric erosions, and nonbleeding varices and an area which may be Barretts which was biopsied. Dr King has discussed these diagnoses with Sr Suarez and he is able to explain them to me in turn. Dr King has given him presrciptions for Protonix BID and Propanolol. He should also see his GI doctor in [place] in a month and his PCP Dr Julisa Suarez in [place] this week. Consideration was given to the diagnosis of hemachromatosis and since Mr suarez needs to return to [place], he will pursue this possibility with his risk management specialist. His H&H has been stable. He is tolerating a regular diet. He has been up to walk without weakness or dizziness. He was cautioned to cut his dose of propanolol in half if he became dizzy. - Time spent with patient Time with patient DS: Greater than 30 minutes (34 minutes to do discharge planning and care coordination, documentation, medicine reconciliation.) Diagnosis - Discharge Diagnosis (1) Gastric ulcer Status: Acute (2) Gastric erosions Status: Acute (3) Hematemesis Status: Resolved (4) Cirrhosis Status: Chronic (5) Acute posthemorrhagic anemia Status: Resolved (6) History of esophageal varices Status: Chronic Specialty Discharge - Follow Up or Referrals Follow up with: Your, Wrapping Machine Operator in [place] [Other] (2 months) Julisa Kessler [Other] (this week on return to [place]) - Speciality Discharge Instructions Gastroenterology Instructions: ask your doctor to consider hemachromatosis as diagnosis of your cirrhosis v NAFLD. Cut your propanolol in half if you start to have dizziness, and discuss it with your doctor. Take the pictures we are sending home with you to show your doctors in [place]. Discharge Plan - Discharge Data Disposition: Disch To Home/Self Care Condition at Discharge: Stable Discharge Diet: heart healthy Activity: resume usual activities as tolerated - Discharge Medications New Pantoprazole Tab [Protonix Tab] 40 mg PO BID@0700,1900 #0 tablet Propranolol Tab [Inderal Tab] 20 mg PO TID tablet - Follow Up or Referral Follow Up: Your, Wrapping Machine Operator in [place] [Other] (2 months) Julisa Kessler [Other] (this week on return to [place]) - Forms/Instructions Exam - Constitutional Vitals: Period Temp Pulse Resp BP Sys/Hicks Pulse Ox Last 24 Hr 97.4 F-99.3 F 53-80 12-25 121-169/51-98 95-100 General appearance: normal weight, no acute distress - Eye Eye exam: Present: EOMI. Absent: scleral icterus - Respiratory Respiratory exam: Present: clear to auscultation bilaterally - Cardiovascular Cardiovascular exam: Present: regular rate and rhythm - GI/Abdominal GI/Abdominal exam: Present: normal bowel sounds, soft. Absent: tenderness - Extremities Exam Extremities exam: Absent: edema Discharge Results Procedures and tests throughout hospitalization: Pending Orders 01/09/17 12:37 [id number], S Routine Labs on day of discharge: Labs from last 24 hours 01/11/17 15:14 Ferritin 147.8 DS: Provider Date of admission: 01/09/17 00:40 Primary care physician: . No PCP Attending physician on admission: Jeffy Wells MD Consults: 01/09/17 00:40 Consult to Physician [CONS] Routine Comment: vomiting blood, varices Consulting Provider: Derek King 01/09/17 12:14 Consult to Anesthesiology [CONS] Routine Consulting Provider: Reason for Anesthesiology: Pre-op Clearance Discharging clinician: Emma Gonzalez MD
[2017-01-12] MEDS: PROPRANOLOL 20 MG TABLET PO SCH (08:42)
[2017-01-12] MEDS: PANTOPRAZOLE 40 MG TABLET PO SCH (08:43)
[2017-01-12 10:13] VITALS: BP 148/74
--- NOTE | 2017-01-12 14:59 | Physician Query Form ---
CLICK EDIT DOCUMENT TO SELECT QUERY ANSWER --> OK --> SIGN Norma Michaels RN, CCDS Certified Clinical Cushion Maker W) [phone] (f) [phone] [email or web address] PROVIDERS: Make your selection(s) from the choices in EACH section by typing an "x" and enter comments in the comment section. Please use your independent medical judgment in providing your response. This request does not imply that any particular answer is desired or expected. CLINICAL INDICATORS: (Providers should not edit this section) The medical record indicates that the patient was admitted with Hematemesis, EGD showing "Moderate portal hypertensive gastropathy, weeping some blood", "gastric ulcers", and erosions. -----"1 cm ulcer noted here with a few other deep erosions thought to be the source the patient's bleeding" Based on the above, could you clarify the appropriate diagnosis, if significant , that supports the above abnormalities and additional evaluation, monitoring, and/or treatment rendered: ( ) Hematemesis due to "Moderate portal hypertensive gastropathy, weeping some blood" ( ) Hematemesis due to Gastric ulcers (xx) Hematemesis due to "Moderate portal hypertensive gastropathy, weeping some blood" and "Gastric ulcers" ( ) Hematemesis due to ( ) Other, please specify: ( ) Clinically unable to determine COMMENTS: PLEASE ALSO DOCUMENT RESPONSE IN PROGRESS NOTES AND/OR DISCHARGE SUMMARY Use of terms such as suspected, likely, or probable (associated with a specific diagnosis that is being evaluated, monitored, or treated as if it exists) are acceptable and can be restated in the discharge summary if not ruled out. MTDD
--- NOTE | 2017-01-12 18:28 | Pathology Report from [facility] ---
[facility] [place] ACCESSION # : [id number] PATIENT NAME : Severiano Snell ORDERING DR : Derek King MD CLINICAL HX: GI Bleed POST-OP DX: #1 Gastric ulcer #2 Portal gastropathy/Possible Barretts SPECIMEN INFO: #1 KAMERON #2 Esophagus distal GROSS DESCRIPTION: #1 KAMERON consists of a 0.6 x 0.2 cm aggregate of shannon tissue. Submitted in cassette #1.#2 ESOPHAGEAL DISTAL consists of a 0.4 x 0.4 cm aggregate of shannon tissue. Submitted in cassette #2. DIAGNOSIS FOR SEVERIANO SNELL: #1 GASTRIC ANTRAL BIOPSY: Mild chronic gastritis. No evidence of malignancy. H. pylori-like organisms NOT identified on H&E nor special stain with appropriate control.#2 ESOPHAGEAL DISTAL BIOPSY: No epithelium identified. Tissue insufficient for diagnosis. COLLECTED DATE: 01/11/2017 [facility] REPORT DATE: 01/12/2017 ELECTRONICALLY SIGNED BY: Jax Anglin III, M.D. 01/12/2017 - 10:32:32 [facility]
== END 2017-01-12 09:45 | disposition home or self-care (01) | DRG 442 ==
LOC: N.ED 22:45 → N.EDINP 01-09 00:40 → SUATTDRO 01-09 00:40 → N.CC 01-09 01:46
PROVIDERS: ADMIT Family Medicine; ATTEND Internal Medicine